=== PATIENT | female | born 1980 | race Caucasian/White ===

== ENCOUNTER → 2017-08-01 | Outpatient (CLI) | payer BC | LOC: MC.RAD 08:43 | DX: N63.10 Unspecified lump in the right breast, unspecified quadrant (principal) ==

== ENCOUNTER 2017-09-04 11:46 | Emergency (ER) | payer BC ==
[~2017-09-04] VITALS: Ht 170.2 cm; Wt 72.3 kg
[2017-09-04 11:52] VITALS: TEMP 99.3
[2017-09-04] MEDS ORDERED: WELLBUTRIN XL150 MG PO (11:55)
[2017-09-04] MEDS ORDERED: NUVARING VAG RING VG (11:55)
[2017-09-04 13:53] LABS: BILIRUBIN,TOTAL 0.9 mg/dL (0.0-1.0); C-REACTIVE PROTEIN 1.5 mg/dL (0.0-0.9); CALCIUM 9.1 mg/dL (8.4-10.2); CREATININE, serum 0.8 mg/dL (0.52-1.25); POTASSIUM 3.6 mmol/L (3.4-5.0); TOTAL PROTEIN 6.7 gm/dL (6.4-8.2)
[2017-09-04 13:57] LABS: BASO % 0.2 % (0.0-2.0); EOS # 0.1 (0.0-0.7); EOS % 0.6 % (0-4.0); GRAN # 9.1 (1.4-6.5); GRAN % 69.3 % (42.2-75.2); HEMATOCRIT 39.2 % (37.0-47.0); HEMOGLOBIN 13.4 g/dl (12.5-16.0); LYMPH # 3.1 (1.2-3.4); LYMPH % 23.3 % (20.0-51.0); MEAN CELL VOLUME 91 fl (80.0-100.0); MEAN CORPUSCULAR HEMOGLOBIN 31 pg (27.0-31.0); MEAN CORPUSCULAR HGB CONC 34 g/dl (33.0-37.0); MEAN PLATELET VOLUME 10.5 fl (7.4-10.4); MONO # 0.8 (0.1-0.6); MONO % 6.2 % (1.7-9.3); PLATELET COUNT 217 K/mm3 (130-400); RED BLOOD COUNT 4.33 M/mm3 (4.10-5.30); REDCELL DISTRIBUTION WIDTH-CV 11.6 % (11.5-14.5)
[2017-09-04] MEDS ORDERED: FLAGYL500 MG PO (16:24)
[2017-09-04] MEDS ORDERED: CIPRO 500MG TA500 MG PO (16:24)
[2017-09-04] MEDS ORDERED: NORCO 325 MG-51 TAB PO (16:24)
[2017-09-04] MEDS ORDERED: ZOFRAN ODT4 MG PO (16:24)
[2017-09-04 16:51] VITALS: BP 108/80; PULSE 78
== END 2017-09-04 16:52 | disposition home or self-care (01) ==
LOC: COL.ER 11:46
PROVIDERS: Physician Assistant
DX: K52.9 Noninfective gastroenteritis and colitis, unspecified (principal)
CPT/HCPCS: J1170; J2405; J7030; Q9967

== ENCOUNTER → 2023-06-20 | Outpatient (CLI) | payer BC ==
[~2023-06-20] MED LIST: CIPRO 500MG TA500 MG PO; FLAGYL500 MG PO; NORCO 325 MG-51 TAB PO; NUVARING VAG RING VG; WELLBUTRIN XL150 MG PO; ZOFRAN ODT4 MG PO
== END ==
LOC: MC.RAD 08:03
DX: Z12.31 Encounter for screening mammogram for malignant neoplasm of breast (principal)